=== PATIENT | male | born 2000 | race Caucasian/White ===

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

== ENCOUNTER 2021-06-27 08:00 | Outpatient (CLI) | payer OTHER | END 2021-06-27 23:59 | LOC: LAB.S 08:00 | PROVIDERS: ATTEND Registered Nurse | DX: R09.81 Nasal congestion (principal); Z20.822 Contact with and (suspected) exposure to COVID-19 ==

== ENCOUNTER 2021-11-04 20:41 | Outpatient (CLI) | payer OTHER | END 2021-11-04 20:42 | disposition EMS.NT | LOC: EMS 20:41 | DX: S01.132A Puncture wound without foreign body of left eyelid and periocular area, initial encounter (principal); S01.81XA Laceration without foreign body of other part of head, initial encounter; W22.09XA Striking against other stationary object, initial encounter; Y93.59 Activity, other involving other sports and athletics played individually; Y92.828 Other wilderness area as the place of occurrence of the external cause ==

== ENCOUNTER 2021-11-04 21:29 | Emergency (ER) | payer OTHER ==
[2021-11-04] MEDS ORDERED: lidocaine 1% 20 ML MDV SUBQ ONE (22:11)
--- NOTE | 2021-11-04 22:54 | CT Report ---
PROCEDURE: MAXILLOFACIAL WO INDICATIONS: left facial contusion TECHNIQUE: Noncontrast 1.5 mm thick axial images acquired from the mandible through the frontal sinuses, with co tomeka and sagittal reformatting. For radiation dose reduction, the following was used: automated ex posure control, adjustment of mA and/or kV according to patient size. COMPARISON: None. FINDINGS: Image quality: Excellent. Bones and teeth: Orbital arguello are intact. Sinus arguello show no fracture or deformity. Nasal bones and septum are intact. Nasal septal deviation to the right is seen with the bony spur. Mild bilateral Visualized portions of the mandible demonstrate no fractures or subluxation. Zygomatic arches are i ntact. Pterygoid plates are intact. Visualized portions of the skull base and auditory canals are i ntact. Sinuses: Mild mucosal thickening is seen in bilateral maxillary and ethmoid sinuses.. Mastoid air ce lls are aerated. Soft tissues: Soft tissue laceration and swelling over left maxilla and left second metacarpal is see n. No enlarged lymph nodes. No soft tissue lacerations or debris. Vascular: Visualized vascular structures appear normal in the absence of contrast. Bony vascular fo ramina and canals are intact. IMPRESSION: 1. No gross acute facial bone or nasal bone fracture. Nasal septal deviation to the right. 2. Bilateral orbital arguello are intact. Bilateral orbital globes are intact. 3. Left facial soft tissue laceration with soft tissue swelling and small amount of subcutaneous emph ysema over left maxilla. 4. Mild sinusitis in bilateral maxillary and ethmoid sinuses. Reviewed by: Neal Collins MD on 11/04/2021 10:52 PM PDT Approved by: Neal Collins MD on 11/04/2021 10:52 PM PDT Station ID: [id number]
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
[2021-11-05 00:29] VITALS: BP 156/77
== END 2021-11-05 00:30 | disposition home or self-care (01) ==
LOC: ED 21:29
DX: S01.81XA Laceration without foreign body of other part of head, initial encounter (principal); W22.8XXA Striking against or struck by other objects, initial encounter; Y93.89 Activity, other specified
CPT/HCPCS: 12015; 99284

== ENCOUNTER 2022-05-22 08:00 | Outpatient (CLI) | payer OTHER ==
--- NOTE | 2022-05-22 12:59 | XRAY Report ---
PROCEDURE: Ankle 3 View RT INDICATIONS: RIGHT ANKLE PAIN TECHNIQUE: 3 views of the ankle were acquired. COMPARISON: None FINDINGS: Bones: No fractures or dislocations. Ankle mortise is normally aligned. No suspicious bony lesions . Soft tissues: No tibiotalar joint effusion. Achilles tendon appears normal. IMPRESSION: No acute ankle fracture or dislocation. Ankle mortise is congruent. Reviewed by: Neal Collins MD on 05/22/2022 12:58 PM [facility] Approved by: Neal Collins MD on 05/22/2022 12:58 PM PST Station ID: [id number]
== END 2022-05-22 23:59 | disposition home or self-care (01) ==
LOC: DI.S 08:00
PROVIDERS: ATTEND Physician Assistant Medical
DX: M25.571 Pain in right ankle and joints of right foot (principal)